=== PATIENT | female | born 1955 | race Caucasian/White ===

== ENCOUNTER 2020-08-16 17:08 | Emergency (ER) | payer MEDICARE ==
[2020-08-16] MEDS ORDERED: HYDROmorphone 0.5 MG/0.5 ML Syringe IVPUSH ONE (17:18)
--- NOTE | 2020-08-16 17:43 | EDM.PDOC ---
ED HPI GENERAL MEDICAL PROBLEM - General Chief Complaint: Upper Extremity Injury/Pain Stated Complaint: [facility] Time Seen by Provider: 08/16/20 17:13 Source of Information: Reports: Patient History Limitations: Reports: No Limitations - History of Present Illness INITIAL COMMENTS - FREE TEXT/NARRATIVE: The patient presents by [place] [facility] with a right wrist injury. She was in [place] and getting on her horse. She slipped off the saddle when trying to get on and landed on her right wrist. She has pain and slight deformity to her right wrist. She is right handed. She did not hit her head or hurt her neck. She has no other injuries. She last ate a couple onion rungs, water and a seltzer just prior to arrival. Onset: Sudden Duration: Minutes: Location: Reports: Upper Extremity, Right (wrist) Quality: Reports: Sharp Severity: Moderate Improves with: Reports: Immobilization Worsens with: Reports: Movement Associated Symptoms: Reports: No Other Symptoms Right Wrist Pain Score (Numeric/FACES): 2 - Related Data Allergies Allergy/AdvReac Type Severity Reaction Status Date / Time No Known Allergies Allergy Verified 08/16/20 17:15 Home Meds: Home Meds Aspirin [Adult Aspirin Regimen] 81 mg PO DAILY 08/16/20 [History] Hydrocodone/Acetaminophen [Hydrocodone-Acetamin 5-325 mg] 1 - 2 each PO Q6H PRN #15 tablet 08/16/20 [Rx] Past Medical History Cardiovascular History: Reports: Afib - Past Surgical History HEENT Surgical History: Reports: Cataract Surgery Female Surgical History: Reports: Section, Hysterectomy Social & Family History - Tobacco Use Tobacco Use Status *Q: Never Tobacco User Second Hand Smoke Exposure: No - Recreational Drug Use Recreational Drug Use: No Review of Systems - Review of Systems Review Of Systems: See Below Constitutional: Reports: No Symptoms Eyes: Reports: No Symptoms Ears: Reports: No Symptoms Nose: Reports: No Symptoms Mouth/Throat: Reports: No Symptoms Respiratory: Reports: No Symptoms Cardiovascular: Reports: No Symptoms GI/Abdominal: Reports: No Symptoms Genitourinary: Reports: No Symptoms Musculoskeletal: Reports: Other (Right wrist pain and swelling) ED EXAM, GENERAL - Physical Exam Exam: See Below Exam Limited By: No Limitations General Appearance: Alert, No Apparent Distress Ears: Normal External Exam Nose: Normal Inspection Head: Atraumatic, Normocephalic Neck: Normal Inspection Respiratory/Chest: No Respiratory Distress, Lungs Clear, Normal Breath Sounds Cardiovascular: Regular Rate, Rhythm, No Edema, No Murmur GI/Abdominal: Soft, Non-Tender, No Organomegaly, No Mass Extremities: Other (Pain upon palpation with edema and slight deformity to the right wrist. Good sensation and pulses distally.) ED TRAUMA EXTREMITY PROCEDURES - Joint Reduction Right Wrist Sedation: Conscious Sedation Pre-Procedure NV Status: Normal Post-Procedure NV Status: Normal Technique: Traction/Counter Traction Number of Attempts: 1 Post-Reduction Imaging: Acceptably Reduced, Fracture Seen Joint Reduction Complications: No - Splinting Right Upper Extremity Splint Site: Right wrist Pre-Procedure NV Status: Normal Post-Procedure NV Status: Normal Splint Material: Fiberglass Splint Design: Volar, Sling Applied & Form Fitted By: Provider Provider Post-Splint Application NV Check: NV Status Normal, Good Position Complications: No Course - Vital Signs Last Recorded V/S: Last Vital Signs Temp 96.9 F 08/16/20 17:18 Pulse 81 08/16/20 17:18 Resp 16 08/16/20 17:18 BP 148/74 H 08/16/20 17:18 Pulse Ox 93 L 08/16/20 17:18 - Orders/Labs/Meds Orders: Active Orders 24 hr Category Date Time Status Wrist 2V Rt [CR] Stat Exams 08/16/20 19:46 Ordered Wrist Comp Min 3V Rt [CR] Stat Exams 08/16/20 17:17 Taken Durable Medical Equipment for Discharge [DME for Oth 08/16/20 20:03 Ordered Discharge] [COMM] Stat Meds: Medications Discontinued Medications Generic Name Dose Route Start Last Admin Trade Name Freq PRN Reason Stop Dose Admin Citric Acid/Sodium Citrate 30 ml 08/16/20 19:03 08/16/20 19:16 Citric Acid/Sodium Citrate Solution 30 Ml Cup PO 08/16/20 19:04 30 ml ONETIME ONE Administration Fentanyl Confirm 08/16/20 19:29 Fentanyl 100 Mcg/2 Ml Sdv Administered 08/16/20 19:30 Dose 100 mcg .ROUTE .STK-MED ONE Hydromorphone HCl 0.5 mg 08/16/20 17:18 08/16/20 17:35 Hydromorphone 0.5 Mg/0.5 Ml Syringe IVPUSH 08/16/20 17:19 0.5 mg ONETIME ONE Administration Lactated Ringer's 1,000 mls @ 999 mls/hr 08/16/20 19:03 08/16/20 19:16 Ringers, Lactated IV 08/16/20 20:03 999 mls/hr .BOLUS ONE Administration Ketamine HCl Confirm 08/16/20 19:29 Ketamine 500 Mg/10 Ml Mdv Administered 08/16/20 19:30 Dose 500 mg .ROUTE .STK-MED ONE Metoclopramide HCl 10 mg 08/16/20 19:03 08/16/20 19:16 Metoclopramide 10 Mg/2 Ml Sdv IVPUSH 08/16/20 19:04 10 mg ONETIME ONE Administration Midazolam HCl Confirm 08/16/20 19:29 Midazolam 1 Mg/Ml 2 Ml Sdv Administered 08/16/20 19:30 Dose 2 mg .ROUTE .STK-MED ONE Ondansetron HCl Confirm 08/16/20 19:31 Ondansetron 4 Mg/2 Ml Sdv Administered 08/16/20 19:32 Dose 4 mg .ROUTE .STK-MED ONE - Re-Assessments/Exams Free Text/Narrative Re-Assessment/Exam: 08/16/20 17:44 I ordered an IV saline lock, dilaudid 0.5mg IV and an x-ray of her wrist. 08/16/20 20:04 The x-ray shows a distal radius fracture. It is angulated dorsally. I had my SHEET CATCHER come sedate the patient and I did a reduction of her distal radius fr acture. I splinted her and I will get a post reduction x-ray. 08/16/20 20:37 Post reduction films show better positioning. She says it feels better. I will discharge her home with something for pain. She is not from here. I will have her follow up with ortho back at home. Departure - Departure Time of Disposition: 20:40 Disposition: Home, Self-Care 01 Condition: Good Clinical Impression: Fall Qualifiers: Encounter type: initial encounter Qualified Code(s): W19.XXXA - Unspecified fall, initial encounter Distal radius fracture, right Qualifiers: Encounter type: initial encounter Fracture type: closed Fracture morphology: other fracture Qualified Code(s): S52.591A - Other fractures of lower end of right radius, initial encounter for closed fracture - Discharge Information *PRESCRIPTION DRUG MONITORING PROGRAM REVIEWED*: Not Applicable *COPY OF PRESCRIPTION DRUG MONITORING REPORT IN PATIENT CHETAN: Not Applicable Prescriptions: Hydrocodone/Acetaminophen [Hydrocodone-Acetamin 5-325 mg] 1 - 2 each PO Q6H PRN #15 tablet PRN Reason: Pain Instructions: Moderate Conscious Sedation, Adult, Care After Referrals: PCP,Not In Area [Primary Care Provider] - Forms: ED Department Discharge Additional Instructions: Ice your wrist for 15 minutes 3 times per day for 2 days. Try to elevate your wrist as much as you can for 2 days. Take tylenol or motrin as needed for pain. If that does not work, try the hydrocodone. Please return if you are worse. Follow up with an orthopedic surgeon when you get home. Sepsis Event Note (ED) - Evaluation Sepsis Screening Result: No Definite Risk - Focused Exam Vital Signs: Vital Signs Temp Pulse Resp BP Pulse Ox 08/16/20 17:18 96.9 F 81 16 148/74 H 93 L - My Orders Last 24 Hours: My Active Orders 08/16/20 17:17 Wrist Comp Min 3V Rt [CR] Stat 08/16/20 20:03 Durable Medical Equipment for Discharge [DME for Discharge] [COMM] Stat - Assessment/Plan Last 24 Hours: My Active Orders 08/16/20 17:17 Wrist Comp Min 3V Rt [CR] Stat 08/16/20 20:03 Durable Medical Equipment for Discharge [DME for Discharge] [COMM] Stat
[2020-08-16] MEDS ORDERED: Metoclopramide 10 MG/2 ML SDV IVPUSH ONE (19:03)
[2020-08-16] MEDS ORDERED: Lactated Ringers 1,000 ML IV ONE (19:03)
[2020-08-16] MEDS ORDERED: Citric Acid/Sodium Citrate Solution 30 ML Cup PO ONE (19:03)
--- NOTE | 2020-08-16 19:11 | PCM.PREANE ---
Preanesthetic Assessment - Procedure Proposed Procedure: Closed Reduction of the Right Wrist - Anesthesia/Transfusion/Family Hx Anesthesia History: Prior Anesthesia Reaction Type of Anesthesia Reaction: Excessive Nausea/Vomiting Family History of Anesthesia Reaction: No - Review of Systems General: No Symptoms Pulmonary: No Symptoms Cardiovascular: Other (Atrial Fibrilation) Gastrointestinal: No Symptoms Neurological: No Symptoms Other: Reports: None - Physical Assessment NPO Status Date: 08/16/20 NPO Status Time: 15:30 (H20/Selzer/Bite of onion rung) Vital Signs: Last Vital Signs Temp 36.1 C 08/16/20 17:18 Pulse 81 08/16/20 17:18 Resp 16 08/16/20 17:18 BP 148/74 H 08/16/20 17:18 Pulse Ox 93 L 08/16/20 17:18 Height: 1.57 m Weight: 79.379 kg ASA Class: 2E Mental Status: Alert & Oriented x3 Airway Class: Mallampati = 2 Dentition: Reports: Normal Dentition Thyro-Mental Finger Breadths: 3 Mouth Opening Finger Breadths: 3 ROM/Head Extension: Full Lungs: Clear to Auscultation, Normal Respiratory Effort Cardiovascular: Regular Rate, Irregular Rhythm - Allergies Allergies/Adverse Reactions: Allergies Allergy/AdvReac Type Severity Reaction Status Date / Time No Known Allergies Allergy Verified 08/16/20 17:15 - Anesthesia Plan Pre-Op Medication Ordered: Other (Metoclopramide IV, Bicitra PO) Beta Andrea: Metoprolol Med Last Dose Date: 08/16/20 Med Last Dose Time: 08:00 - Acknowledgements Anesthesia Type Planned: MAC Pt an Appropriate Candidate for the Planned Anesthesia: Yes Alternatives and Risks of Anesthesia Discussed w Pt/Guardian: Yes Pt/Guardian Understands and Agrees with Anesthesia Plan: Yes Additional Comments: Poppy is agreeable to minimal anesthetic as she does not want to wait for full NPO status, she understands the risk of aspiration. Dr. Luna is requesting to complete the procedure at this time. Bicitra PO and Metoclopramide IV to be administered prior to procedure. All parties agreeable at this time. PreAnesthesia Questionnaire Cardiovascular History: Reports: Afib - Past Surgical History HEENT Surgical History: Reports: Cataract Surgery Female Surgical History: Reports: Section, Hysterectomy - SUBSTANCE USE Tobacco Use Status *Q: Never Tobacco User Second Hand Smoke Exposure: No Recreational Drug Use History: No - HOME MEDS Home Medications: Home Meds Aspirin [Adult Aspirin Regimen] 81 mg PO DAILY 08/16/20 [History] - CURRENT (IN HOUSE) MEDS Current Meds: Current Medications Lactated Ringer's (Ringers, Lactated) 1,000 mls @ 999 mls/hr IV .BOLUS ONE Stop: 08/16/20 20:03 Discontinued Medications Citric Acid/Sodium Citrate (Citric Acid/Sodium Citrate Solution 30 Ml Cup) 30 ml PO ONETIME ONE Stop: 08/16/20 19:04 Hydromorphone HCl (Hydromorphone 0.5 Mg/0.5 Ml Syringe) 0.5 mg IVPUSH ONETIME ONE Stop: 08/16/20 17:19 Last Admin: 08/16/20 17:35 Dose: 0.5 mg Documented by: Metoclopramide HCl (Metoclopramide 10 Mg/2 Ml Sdv) 10 mg IVPUSH ONETIME ONE Stop: 08/16/20 19:04
[2020-08-16] MEDS ORDERED: Ketamine 500 mg/10 ML MDV ONE (19:29)
[2020-08-16] MEDS ORDERED: Midazolam 1 MG/ML 2 ML SDV ONE (19:29)
[2020-08-16] MEDS ORDERED: fentaNYL 100 MCG/2 ML SDV ONE (19:29)
[2020-08-16] MEDS ORDERED: Ondansetron 4 MG/2 ML SDV ONE (19:31)
--- NOTE | 2020-08-17 12:49 | CR ---
Right wrist: 4 views of the right wrist were obtained. Comparison: No prior study. Slightly comminuted distal right radial fracture is seen. There is posterior displacement of the distal epiphysis by approximately 7 mm. Posterior impaction is seen with dorsal tilt of the distal radial articular margin. No additional fracture or other bony abnormality is seen. Diffuse soft tissue swelling is seen. Impression: 1. Displaced and mildly impacted distal right radial fracture with soft tissue swelling. Diagnostic code #3
--- NOTE | 2020-08-17 12:50 | CR ---
Right wrist: AP and lateral views of the right wrist were obtained. Comparison: Prior right wrist study performed earlier on the same day (5:57 PM). Distal radial fracture is seen. Mild displacement is seen in a lateral direction of the epiphysis by approximately 5 mm. Slight displacement posteriorly of the epiphysis is seen by about 4 mm. Fiberglass splint is present. Soft tissue swelling is noted. Impression: 1. Slightly displaced distal radial fracture with soft tissue swelling. 2. Fiberglass splint is in place. Diagnostic code #2
== END 2020-08-16 20:58 | disposition home or self-care (01) ==
LOC: JD.ED 17:08
DX: S52.591A Other fractures of lower end of right radius, initial encounter for closed fracture (principal); R60.0 Localized edema; Z79.82 Long term (current) use of aspirin; W01.0XXA Fall on same level from slipping, tripping and stumbling without subsequent striking against object, initial encounter
CPT/HCPCS: 25605; 73100; 73110; 96374; 96375; 99284; A9270; J1170; J2250; J2405; J2765; J3010; J7120; 01820; 99140; 99283